=== PATIENT | female | born 1990 | race Caucasian/White ===

== ENCOUNTER 2017-07-21 10:31 | Inpatient (IN) | payer MEDICAID ==
[2017-07-21] MEDS ORDERED: LIDOCAINE 1% (MPF) 30 ML INJ INJ ×2 (11:00→11:30)
[2017-07-21] MEDS ORDERED: CARBOPROST 250 MCG INJ IM ×4 (11:00→16:00)
[2017-07-21] MEDS ORDERED: OXYTOCIN 30 UNITS/LR 500 ML IV ×6 (11:00→16:00)
[2017-07-21] MEDS ORDERED: METHYLERGONOVINE 0.2 MG INJ IM ×4 (11:00→16:00)
[2017-07-21] MEDS ORDERED: MISOPROSTOL 200 MCG TAB PR ×4 (11:00→16:00)
[2017-07-21] MEDS ORDERED: BUTORPHANOL 2 MG INJ IV ×3 (11:00→11:30)
[2017-07-21] MEDS ORDERED: AMPICILLIN 2 GM/NS (PMX) 100 ML (11:18)
[2017-07-21 11:28] LABS: ADD MAN DIFF? NO
[2017-07-21] MEDS ORDERED: AMPICILLIN 2 GM/NS (PMX) 100 ML IV (11:30)
[2017-07-21 11:34] LABS: WHITE BLOOD COUNT 6.2 10^3/ul (4.8-10.8)
[2017-07-21 11:34] LABS: BASOPHILS % 0.6 % (0.0-2.0); EOSINOPHILS # 0.1 10^3/ul (0.0-0.5); EOSINOPHILS % 2.1 % (0.0-7.0); HEMATOCRIT 34.7 % (37.0-47.0); HEMOGLOBIN 10.9 g/dl (12.0-16.0); LYMPHOCYTES # 1.6 10^3/ul (0.8-2.9); LYMPHOCYTES % 26.3 % (15.0-51.0); MEAN CORPUSCULAR HEMOGLOBIN 24.4 pg (29.0-33.0); MEAN CORPUSCULAR HGB CONC 31.4 g/dl (32.0-37.0); MEAN CORPUSCULAR VOLUME 77.8 fl (82.0-101.0); MEAN PLATELET VOLUME 12.6 fl (7.4-10.4); MONOCYTE # 0.7 10^3/ul (0.3-0.9); MONOCYTES % 10.6 % (0.0-11.0); NEUTROPHIL # 3.7 10^3/ul (1.6-7.5); NEUTROPHILS % 60.1 % (39.0-77.0); PLATELET COUNT 205 10^3/UL (140-415); RED BLOOD COUNT 4.46 10^6/ul (4.20-5.40); RED CELL DISTRIBUTION WIDTH 14.2 % (11.5-14.5)
[2017-07-21] MEDS: LACTATED RINGER'S 1,000 ML IV ×3 (11:36→19:17)
[2017-07-21 12:04] LABS: PT RATIO 0.9
[2017-07-21 12:30] LABS: HEPATITIS B SURFACE ANTIGEN NEGATIVE (NEGATIVE)
[2017-07-21 12:30] LABS: INR 0.88; PARTIAL THROMBOPLASTIN TIME 26.4 Sec (25.0-35.0)
[2017-07-21] MEDS ORDERED: FENTAnyl 2MCG/ML-ROPIV 0.2% 100 ML (13:48)
[2017-07-21] MEDS ORDERED: NALOXONE (0.4 MG/ML) INJ IV (14:30)
[2017-07-21] MEDS ORDERED: AMPICILLIN 1 GM/NS (PMX) 50 ML IV (15:30)
[2017-07-21] MEDS: OXYTOCIN 30 UNITS/LR 500 ML IV ×3 (15:35→20:42)
[2017-07-21] MEDS: LACTATED RINGER'S 1,000 ML IV* ×2 (15:58→23:58)
[2017-07-21] MEDS ORDERED: LACTATED RINGER'S 1,000 ML IV* (15:58)
[2017-07-21] MEDS ORDERED: ZOLPIDEM 5 MG TAB PO (16:00)
[2017-07-21] MEDS ORDERED: DIPHENHYDRAMINE 25 MG CAP PO (16:00)
[2017-07-21] MEDS ORDERED: ACETAMINOPHEN 325 MG TAB PO (16:00)
[2017-07-21] MEDS ORDERED: SENNA/DOCUSATE NA (8.6MG/50MG) TAB PO (16:00)
[2017-07-21] MEDS ORDERED: MAGNESIUM HYDROXIDE 30ML CUP PO (16:00)
[2017-07-21] MEDS: IBUPROFEN 800 MG TAB PO (18:11)
[2017-07-21] MEDS: LANOLIN 7 GM TUBE TOP (18:11)
[2017-07-21] MEDS: WITCH HAZEL/GLYCERIN PAD PR (18:12)
[2017-07-21] MEDS: BENZOCAINE 20% 56 ML SPRAY TOP (18:12)
[2017-07-21] MEDS: FENTAnyl 2MCG/ML-ROPIV 0.2% 100 ML BAG EPI (20:44)
[2017-07-21 20:53] LABS: RAPID PLASMA REAGIN NONREACTIVE (NR)
[2017-07-21] MEDS ORDERED: INFLUENZA VIRUS VACCINE 0.5 ML (DISPENSING) IM* (21:00)
[2017-07-22] MEDS: IBUPROFEN 600 MG TAB PO (00:15)
[2017-07-22] MEDS: LACTATED RINGER'S 1,000 ML IV ×2 (03:17→11:17)
[2017-07-22] MEDS: HYDROCODONE/APAP (5/325) TAB PO (03:21)
[2017-07-22] MEDS: IBUPROFEN 800 MG TAB PO ×5 (05:58→23:35)
[2017-07-22] MEDS: LACTATED RINGER'S 1,000 ML IV* (07:58)
[2017-07-22 09:02] LABS: ADD MAN DIFF? NO
[2017-07-22 09:07] LABS: BASOPHILS % 0.5 % (0.0-2.0); EOSINOPHILS # 0.2 10^3/ul (0.0-0.5); EOSINOPHILS % 2.9 % (0.0-7.0); HEMATOCRIT 31.9 % (37.0-47.0); HEMOGLOBIN 10.2 g/dl (12.0-16.0); LYMPHOCYTES % 26.4 % (15.0-51.0); MEAN CORPUSCULAR HEMOGLOBIN 24.6 pg (29.0-33.0); MEAN CORPUSCULAR VOLUME 76.9 fl (82.0-101.0); MEAN PLATELET VOLUME 12.8 fl (7.4-10.4); MONOCYTE # 0.8 10^3/ul (0.3-0.9); MONOCYTES % 10.2 % (0.0-11.0); NEUTROPHIL # 4.6 10^3/ul (1.6-7.5); NEUTROPHILS % 59.7 % (39.0-77.0); PLATELET COUNT 170 10^3/UL (140-415); RED BLOOD COUNT 4.15 10^6/ul (4.20-5.40); RED CELL DISTRIBUTION WIDTH 14.4 % (11.5-14.5)
[2017-07-22 09:07] LABS: WHITE BLOOD COUNT 7.7 10^3/ul (4.8-10.8)
[2017-07-22] MEDS: INFLUENZA VIRUS VACCINE 0.5 ML (DISPENSING) IM* (14:37)
[2017-07-23] MEDS: IBUPROFEN 800 MG TAB PO ×2 (05:50→12:06)
[2017-07-23] MEDS: MEASLES,MUMPS,RUBELLA VACCINE INJ SC* (09:00)
[2017-07-23] MEDS: VARICELLA VACCINE LIVE/PF 1,350 UNIT/0.5 ML ML SC* (09:00)
[2017-07-23] MEDS: DIPHTH/TET/ACEL PERTUSS (ADULT) 0.5 ML VIAL IM* (12:08)
== END 2017-07-23 16:30 | disposition home or self-care (01) | DRG 775 ==
LOC: OBT 10:31 → L-D 10:31 → OBT 10:47 → L-D 10:40 → PP1 18:22
PROVIDERS: Obstetrics & Gynecology
PROC: 10E0XZZ Delivery of Products of Conception, External Approach (ICD-10-PCS; principal; 2017-07-21)
DX: O80 Encounter for full-term uncomplicated delivery (principal); Z37.0 Single live birth; Z3A.39 39 weeks gestation of pregnancy
CPT/HCPCS: 62319; 85025; 85610; 85730; 86592; 86900; 86901; 87340; 90686; 90715; 90716